=== PATIENT | female | born 1980 | race Hispanic/Latino ===

== ENCOUNTER 2023-02-12 10:26 | Outpatient (CLI) | payer OTHER | END 2023-02-12 10:27 | disposition home or self-care (01) | LOC: CSHCP 10:26 | PROVIDERS: ATTEND Internal Medicine Critical Care Medicine | DX: R06.00 Dyspnea, unspecified (principal); G47.33 Obstructive sleep apnea (adult) (pediatric) | CPT/HCPCS: 94010; 94726; 94729; 94760 ==